=== PATIENT | female | born 1995 | race Caucasian/White ===

== ENCOUNTER 2018-09-28 19:50 | Emergency (ER) | payer BC, MEDICAID, OTHER ==
[2018-09-28 20:00] VITALS: RESP 18
[2018-09-28] MEDS ORDERED: LIDOCAINE 1% INJ 10MG/ML (20 ML MDV) SQ ONE (21:00)
[2018-09-28] MEDS ORDERED: IBUPROFEN 600 MG TAB PO STA (21:00)
[2018-09-28] MEDS ORDERED: ACETAMINOPHEN TAB 500 MG TAB PO STA (21:00)
[2018-09-28] MEDS ORDERED: AMOXIC-POT CLAV 875MG STARTER 2 EACH TABLET PO STA (21:01)
--- NOTE | 2018-09-28 21:24 | XR ---
EXAMINATION TYPE: XR humerus RT DATE OF EXAM: 09/28/2018 COMPARISON: NONE HISTORY: Laceration TECHNIQUE: 2 views FINDINGS: I see no fracture nor dislocation. Shoulder joint and elbow joint appear intact. There is s oft tissue deformity at the anterior lower humerus consistent with laceration. IMPRESSION: No fracture seen.
--- NOTE | 2018-09-28 21:37 | ED ---
Animal Bite HPI - General Chief Complaint: Animal Bite Stated Complaint: Dog Bite Time Seen by Provider: 09/28/18 20:53 Source: patient Mode of arrival: ambulatory Limitations: no limitations - History of Present Illness Initial Comments: 23-year-old female patient presents to the emergency department today for evaluation of animal bite to the right upper arm. Patient states she is at a friend's house when their dog bit her. She states it was a Rottweiler. States it is up-to-date on its immunizations. Patient states that she has 2 lacerations to the right upper arm. States that she is having some pressure to the area but denies any significant pain. Denies a difficulty with range of motion of the joints. Patient states her tetanus vaccine is up-to-date within the last 5 years. She denies taking anything for pain. Denies any other injuries. Patient denies any headache, neck pain, back pain, chest pain, shortness of breath, dizziness, weakness, abdominal pain, nausea, vomiting, or difficulties with bowel movements or urination. - Related Data Previous Rx's Medication Instructions Recorded Amoxic-Pot Clav 875-125Mg 1 tab PO Q12HR #14 tablet 09/28/18 [Augmentin 875-125] Allergies Allergy/AdvReac Type Severity Reaction Status Date / Time No Known Allergies Allergy Verified 09/28/18 20:00 Review of Systems ROS Statement: Those systems with pertinent positive or pertinent negative responses have been documented in the HPI. ROS Other: All systems not noted in ROS Statement are negative. Past Medical History Past Medical History: No Reported History History of Any Multi-Drug Resistant Organisms: None Reported Past Surgical History: No Surgical Hx Reported Past Psychological History: No Psychological Hx Reported Smoking Status: Never smoker Past Alcohol Use History: Occasional Past Drug Use History: None Reported General Exam Limitations: no limitations General appearance: alert, in no apparent distress, other (Physical well- developed, well-nourished adult female patient in no acute distress. Vital signs upon presentation are temperature 98.2F, pulse 108, respirations 18, blood pressure 133/72, pulse ox 100% on room air.) Eye exam: Present: normal appearance, PERRL, EOMI. Absent: scleral icterus, conjunctival injection, periorbital swelling ENT exam: Present: normal exam, normal oropharynx, mucous membranes moist Respiratory exam: Present: normal lung sounds bilaterally. Absent: respiratory distress, wheezes, rales, rhonchi, stridor Cardiovascular Exam: Present: regular rate, normal rhythm, normal heart sounds. Absent: systolic murmur, diastolic murmur, rubs, gallop, clicks Extremities exam: Present: full ROM, normal capillary refill, other (Right upper arm swelling, ecchymosis. Superficial abrasions noted. 2 lacerations with exposed fat material, both 3cm. skin is otherwise pink, warm, dry. Cap refills less than 3 seconds. Radial pulses 2+ and equal bilaterally.). Absent: normal inspection, tenderness, pedal edema, joint swelling, calf tenderness Neurological exam: Present: alert, oriented X3, CN II-XII intact Psychiatric exam: Present: normal affect, normal mood Skin exam: Present: warm, dry, intact, normal color. Absent: rash Course Vital Signs 09/28/18 19:56 Temperature 98.2 F Pulse Rate 108 H Respiratory 18 Rate Blood Pressure 133/72 O2 Sat by Pulse 100 Oximetry Procedures - Laceration Laceration #1 Consent Obtained: verbal consent Indication: laceration Site: upper extremity ( Right lateral upper arm) Size (cm): 3 Description: linear Depth: simple, single layer Anesthetic Used: lidocaine 1% Anesthesia Technique: local infiltration Amount (mls): 5 Pre-repair: irrigated extensively Type of Sutures: nylon Size of Sutures: 4-0 Number of Sutures: 2 Technique: simple, interrupted Patient Tolerated Procedure: well, no complications Laceration #2 Consent Obtained: verbal consent Indication: laceration Site: upper extremity (Left medial upper arm) Size (cm): 3 Description: irregular Depth: simple, single layer Anesthetic Used: lidocaine 1% Anesthesia Technique: local infiltration Amount (mls): 5 Pre-repair: irrigated extensively Type of Sutures: nylon Size of Sutures: 4-0 Number of Sutures: 2 Technique: simple, interrupted (one corner stitch) Patient Tolerated Procedure: well, no complications Medical Decision Making - Medical Decision Making 23-year-old female patient presented to the emergency department today for evaluation of dog bite to the right upper arm. Physical examination did reveal 2 lacerations with surrounding edema, ecchymosis, and abrasions. X-ray was obtained of the right upper arm and showed no evidence for foreign body or bony abnormality. Given the gaping nature of both lacerations I did have to insert 2 sutures to each one. I did irrigate each wound extensively. Patient will be started on Augmentin for prophylaxis. She is given a starter pack of Tylenol with codeine per she is instructed take Tylenol Motrin for any further discomfort. She is instructed to return in 7 days for suture removal. She is instructed to follow-up with her primary care physician for recheck in 1-2 days. Return parameters discussed in detail. She verbalizes understanding and agrees with this plan. - Radiology Data Radiology results: report reviewed, image reviewed 2 views of the right humerus are obtained. Report was reviewed in its entirety. Impression by Dr. Evangelista shows no fracture seen Disposition Clinical Impression: Dog bite of right upper arm Disposition: HOME SELF-CARE Condition: Good Instructions (If sedation given, give patient instructions): Animal Bite (ED), Care For Your Stitches (ED) Additional Instructions: Keep wound clean and dry. Cleanse twice daily with warm water and antibacterial soap. Keep covered. Follow-up with your primary care physician for recheck in 1-2 days. Complete antibiotic prescription in full. Return to the emergency department for any new, worsening, or concerning symptoms. Prescriptions: Amoxic-Pot Clav 875-125Mg [Augmentin 875-125] 1 tab PO Q12HR #14 tablet Is patient prescribed a controlled substance at d/c from ED?: No Referrals: Sandy Ladd MD [Primary Care Provider] - 1-2 days Time of Disposition: 22:32
[2018-09-28] MEDS ORDERED: ACET/COD 300 MG/30 MG STARTER PACK 6 TAB BTL PO STA (22:32)
[2018-09-28 22:48] VITALS: BP 126/68; PULSE 74; TEMP 98.1
== END 2018-09-28 22:45 | disposition home or self-care (01) ==
LOC: EC 19:50
DX: S41.111A Laceration without foreign body of right upper arm, initial encounter (principal); S41.112A Laceration without foreign body of left upper arm, initial encounter; W54.0XXA Bitten by dog, initial encounter
CPT/HCPCS: 73060; 99283; 12002; J2001

== ENCOUNTER 2021-01-30 07:27 | Outpatient (CLI) | payer MEDICAID ==
[2021-01-30 07:59] VITALS: BP 133/84; PULSE 91; RESP 16; TEMP 97.9
--- NOTE | 2021-03-14 16:25 | P.MSEPDOC ---
Presenting Problems - Arrival Data Date of Arrival on Unit: 01/30/21 Time of Arrival on Unit: 20:20 Mode of Transport: Ambulatory - Complaint OB-Reason for Admission/Chief Complaint: Vaginal Bleeding Medical History - Information : 1 Para: 0 Term: 0 : 0 Abortions: Spontaneous or Elective: 0 Number of Living Children: 0 - Gestational Age Gestational Age by DARÍO (wks/days): 37 Weeks and 0 Days Review of Systems - Review of Systems Constitutional: No problems Breast: No problems ENT: No problems Cardiovascular: No problems Respiratory: No problems Gastrointestinal: No problems Genitourinary: No problems Musculoskeletal: No problems Neurological: No problems Skin: No problems Vital Signs - Temperature Temperature: 97.9 F Temperature Source: Temporal Artery Scan - Pulse Brachial Pulse Rate: 91 Pulse Assessment Method: Automatic Cuff - Respirations Respiratory Rate: 16 Oxygen Delivery Method: Room Air O2 Sat by Pulse Oximetry: 97 - Blood Pressure Right Arm Sitting Blood Pressure: 133/84 Blood Pressure Mean: 100 Blood Pressure Source: Automatic Cuff Medical Screen Scoring - Cervical Exam Dilation (cm): 2 Effacement (%): 60 Station: -1 - Assessment - Baby A Baseline FHR: 135 Heart Rate - NICHD Category: Category I (Normal) NST: Reactive Physician Notification - Physician Notified Physician Notified Date: 01/30/21 Physician Notified Time: 08:51 Physician: Margaret Courtney Order Received: Yes - Notification Comment Comment: reported cervical exams, no change after 1 hr. dc pt home and she will f/u with Dr Cedeno in the am for her scheduled appt. Maternal Triage Index - Maternal Triage Index Presenting for scheduled procedure w/no complaint: No - Stat/Priority 1 Stat Priority 1: No - Urgent/Priority 2 Urgent Priority 2: No - Prompt/Priority 3 Prompt Priority 3: No - Non-Urgent/Priority 4 Non-Urgent Priority 4: Yes Criteria Met for Priority 4: recheck cervix in 1 hr Disposition - Disposition OB Disposition: Physician follow up in office, Discharge to home, Written follow up instructions reviewed Discharge Date: 01/30/21 Discharge Time: 09:04 I agree with the RN Medical Screening Exam: Yes Physician's MSE Comment: Patient not seen or examined by myself Case reviewed; plan agreed upon as documented in EMR&OBIX.: Yes Diagnosis: FALSE LABOR AT OR AFTER 37 COMPLETED WEEKS OF GESTATION
== END 2021-01-30 09:04 | disposition home or self-care (01) ==
LOC: FBPOP 07:27
PROVIDERS: ATTEND Obstetrics & Gynecology Obstetrics
DX: O47.1 False labor at or after 37 completed weeks of gestation (principal); Z3A.37 37 weeks gestation of pregnancy
CPT/HCPCS: 59025; 99213

== ENCOUNTER 2021-01-30 19:50 | Inpatient (IN) | payer MEDICAID ==
[2021-01-30] MEDS ORDERED: OXYTOCIN 10 UNIT/ML 1 ML VIAL IM PRN (20:26)
[2021-01-30] MEDS ORDERED: CARBOPROST TROMETHAMINE 250 MCG/ML 1 ML AMP IM PRN (20:26)
[2021-01-30] MEDS ORDERED: TERBUTALINE 1 MG/ML VIAL SQ PRN (20:26)
[2021-01-30] MEDS ORDERED: LIDOCAINE 0.5% (PF) 5 MG/ML (50 ML SDV) SQ PRN (20:26)
[2021-01-30] MEDS ORDERED: METHYLERGONOVINE 0.2 MG/ML 1 ML AMP IM PRN (20:26)
[2021-01-30 21:23] VITALS: RESP 16
[2021-01-30] MEDS: OXYTOCIN 30 UNITS/500 ML NS 30 UNIT in SALINE 1 500ML.BAG IV SCH (21:26)
[2021-01-30] MEDS: LACTATED RINGERS 1,000 ML IV SCH ×2 (21:27→22:16)
[2021-01-30] MEDS ORDERED: fentaNYL (PF) 50 MCG/ML 5 ML AMP ONE (22:19)
[2021-01-30] MEDS ORDERED: SODIUM CHLORIDE 0.9% 100 ML BAG ONE (22:19)
[2021-01-30] MEDS ORDERED: ROPIVACAINE 5MG/ML 20ML VIAL ONE (22:19)
[2021-01-30 22:35] LABS: Basophils % (A) 0 %; Eosinophils # (A) 0.2 k/uL (0-0.7); Eosinophils % (A) 1 %; HCT 37.8 % (34.0-46.0); HGB 13.4 gm/dL (11.4-16.0); Lymphocytes # (A) 2.4 k/uL (1.0-4.8); Lymphocytes % (A) 14 %; MCH 34.2 pg (25.0-35.0); MCHC 35.3 g/dL (31.0-37.0); MCV 96.7 fL (80.0-100.0); Mean Platelet Volume 11.9; Monocytes # (A) 1.1 k/uL (0-1.0); Monocytes % (A) 6 %; Neutrophils # (A) 13.5 k/uL (1.3-7.7); Neutrophils % (A) 78 %; Platelet Count 180 k/uL (150-450); RBC 3.91 m/uL (3.80-5.40); RDW 12.4 % (11.5-15.5); WBC 17.3 k/uL (3.8-10.6)
--- NOTE | 2021-01-31 01:05 | P.HPOB ---
History of Present Illness H&P Date: 01/31/21 Chief Complaint: IUP at 37 and 0, active labor This is a 18-year-old 1 para 0 at 38-0/7 weeks with an estimated due date of 02/21. Patient presents with regular painful contractions, patient believes her water broke around 1700. Patient noted good movement. P atient been receiving routine care which had been essentially uncomplicated. Patient has a known blood type of B+, rubella status immune, hep [place] surface antigen negative, HIV negative, RPR nonreactive, group beta strep cultures negative. Review of Systems Constitutional: Denies chills, Denies fatigue, Denies fever Ears, nose, mouth and throat: Denies headache Cardiovascular: Reports leg edema Respiratory: Denies dyspnea Gastrointestinal: Denies constipation, Denies diarrhea Genitourinary: Reports Past Medical History Past Medical History: No Reported History History of Any Multi-Drug Resistant Organisms: None Reported Past Surgical History: No Surgical Hx Reported Past Anesthesia/Blood Transfusion Reactions: No Reported Reaction Past Psychological History: No Psychological Hx Reported Smoking Status: Never smoker Past Alcohol Use History: Occasional Past Drug Use History: None Reported Medications and Allergies Home Medications Medication Instructions Recorded Confirmed Type Aspirin [[place] Aspirin EC] 81 mg PO DAILY 01/30/21 01/30/21 History Pnv No.95/Ferrous Fum/Folic AC 1 each PO DAILY 01/30/21 01/30/21 History [ Multivitamin Tablet] Allergies Allergy/AdvReac Type Severity Reaction Status Date / Time No Known Allergies Allergy Verified 01/30/21 20:25 Exam Osteopathic Statement: *. No significant issues noted on an osteopathic structural exam other than those noted in the History and Physical/Consult. 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 Results Result Diagrams: 01/30/21 20:48 Abnormal Lab Results - Last 24 Hours (Table) 01/30/21 Range/Units 20:48 WBC 17.3 H (3.8-10.6) k/uL Neutrophils # 13.5 H (1.3-7.7) k/uL Monocytes # 1.1 H (0-1.0) k/uL Assessment and Plan (1) 37 weeks gestation of Current Visit: Yes Status: Acute Code(s): Z3A.37 - 37 WEEKS GESTATION OF SNOMED Code(s): 38872449 (2) SROM (spontaneous rupture of membranes) Current Visit: Yes Status: Acute Code(s): LRW4807 - SNOMED Code(s): 544661770 (3) Active labor Current Visit: Yes Status: Acute Code(s): PQN3868 - SNOMED Code(s): 274194421 Plan: 26-year-old 1 para 0 at 37-0/7 weeks that presents to labor and delivery in active labor. Noted spontaneous rupture of membranes. Patient is admitted to labor and delivery with expectant management. Anticipate spontaneous vaginal delivery.
--- NOTE | 2021-01-31 01:09 | P.PROBDLV ---
Vaginal Delivery Note - . Vaginal Delivery Note: 26-year-old 1 para 0 at 37-2/7 weeks presented to labor and delivery with complaints of regular painful contractions, noted spontaneous rupture of membranes around 1700. Known negative group beta strep cultures. Patient is admitted to labor and delivery for expectant management. Patient became uncomfortable and did request epidural placement. Epidural was placed without difficulty by the anesthesia . Patient progressed to complete began pushing and had a normal spontaneous vaginal delivery of a viable male infant at 041, weight of 5 pounds 5.9 ounces, Apgars of 8 and 9 at one and 5 minutes respectively. A loose nuchal cord was noted at delivery and delivered through. After two-minute delay the umbilical cord doubly clamped and cut, and the placenta was delivered spontaneously intact with three-vessel cord being noted. On section the patient's vaginal vault a secondary midline laceration was appreciated. This was instilled with lidocaine and repaired in usual fashion with 3-0 Rapide. Hemostasis was appreciated after repair. The uterus was noted to be boggy after delivery the bladder was then drained for approximately 150 mL of clear yellow urine. The uterus is noted to be firm. Soon afterwards the uterus was noted to be boggy once again and therefore Methergine was given 1. Uterus is noted to be firm and below the umbilicus at this time. Estimated blood loss 200 mL. Patient and tolerated delivery well and are resting comfortably. All counts noted be correct 2 at the end of the delivery.
[2021-01-31] MEDS: OXYTOCIN 30 UNITS/500 ML NS 30 UNIT in SALINE 1 500ML.BAG IV SCH (01:11)
[2021-01-31] MEDS ORDERED: diphenhydrAMINE 25 MG CAP PO PRN (01:43)
[2021-01-31] MEDS ORDERED: ZOLPIDEM 5 MG TAB PO PRN (01:43)
[2021-01-31] MEDS ORDERED: LANOLIN CREAM 5 GM TUBE TOPICAL PRN (01:43)
[2021-01-31] MEDS ORDERED: diphenhydrAMINE 50 MG/ML 1 ML VIAL IVP PRN ×2 (01:43)
[2021-01-31] MEDS ORDERED: ACETAMINOPHEN TAB 325 MG TAB PO PRN (01:43)
[2021-01-31] MEDS ORDERED: HYDROCORTISONE 2.5% RECTAL CREAM 30 GM TUBE RECTAL PRN (01:43)
[2021-01-31] MEDS ORDERED: diphenhydrAMINE 50 MG CAP PO PRN (01:43)
[2021-01-31] MEDS ORDERED: BENZOCAINE/MENTHOL SPRAY 1 GM/SPRAY AEROSOL TOPICAL PRN (01:43)
[2021-01-31] MEDS ORDERED: SIMETHICONE 80 MG CHEWABLE PO PRN (01:43)
[2021-01-31] MEDS: IBUPROFEN 600 MG TAB PO SCH ×4 (02:51→23:17)
[2021-01-31] MEDS: SENNOSIDES-DOCUSATE SODIUM 1 EACH TAB PO SCH ×2 (07:52→23:17)
[2021-02-01] MEDS: IBUPROFEN 600 MG TAB PO SCH ×2 (05:49→07:54)
[2021-02-01 07:13] LABS: Basophils % (A) 0 %; Eosinophils # (A) 0.2 k/uL (0-0.7); Eosinophils % (A) 1 %; HCT 32.6 % (34.0-46.0); HGB 11.3 gm/dL (11.4-16.0); Lymphocytes # (A) 1.8 k/uL (1.0-4.8); Lymphocytes % (A) 13 %; MCH 34.4 pg (25.0-35.0); MCHC 34.8 g/dL (31.0-37.0); MCV 98.9 fL (80.0-100.0); Mean Platelet Volume 10.2; Monocytes # (A) 0.7 k/uL (0-1.0); Monocytes % (A) 5 %; Neutrophils # (A) 10.7 k/uL (1.3-7.7); Neutrophils % (A) 80 %; Platelet Count 155 k/uL (150-450); RBC 3.29 m/uL (3.80-5.40); RDW 12.7 % (11.5-15.5); WBC 13.5 k/uL (3.8-10.6)
[2021-02-01] MEDS: SENNOSIDES-DOCUSATE SODIUM 1 EACH TAB PO SCH (07:54)
[2021-02-01 08:33] VITALS: BP 135/71; PULSE 88; TEMP 98.1
--- NOTE | 2021-02-01 12:11 | P.DS ---
Providers Date of admission: 01/30/21 20:20 Expected date of discharge: 02/01/21 Attending physician: Jana Cedeno Primary care physician: Stated None - Discharge Diagnosis(es) (1) 37 weeks gestation of Current Visit: Yes Status: Acute (2) SROM (spontaneous rupture of membranes) Current Visit: Yes Status: Acute (3) Active labor Current Visit: Yes Status: Acute (4) Status post normal vaginal delivery Current Visit: Yes Status: Acute Hospital Course: This is a 18-year-old 1 para 0 that presented to labor and delivery at 38-2/7 weeks with complaints of regular painful contractions. Patient states she's been te with the day and became more uncomfortable. Patient noted spontaneous rupture of membranes around 1700. Patient had a negative group beta strep culture. Patient was admitted to labor and delivery eventually becoming uncomfortable and requesting epidural placement. Patient progressed to complete began pushing and had a normal spontaneous vaginal delivery of a viable male at 041, weight of 5 pounds 5.9 ounces, Apgars of 8 and 9 at one and 5 minutes respect daily. Patient did sustain a second degree midline laceration which was repaired in the usual fashion with 3-0 Rapide. Patient did receive Methergine 1 secondary to bleeding after delivery. Her surgery firm afterwards. Patient's course has been uneventful. On this day 1 she is ambulatory and voiding without difficulty. She is tolerating a regular diet without nausea or vomiting. She is breast-feeding w ithout difficulty. She states her pain is well-controlled. She would like discharge home today. Patient Condition at Discharge: Good Plan - Discharge Summary Discharge Rx Participant: Yes New Discharge Prescriptions: No Action Pnv No.95/Ferrous Fum/Folic AC [ Multivitamin Tablet] 1 each PO DAILY Aspirin [[place] Aspirin EC] 81 mg PO DAILY Discharge Medication List Aspirin [[place] Aspirin EC] 81 mg PO DAILY 01/30/21 [History] Pnv No.95/Ferrous Fum/Folic AC [ Multivitamin Tablet] 1 each PO DAILY 01/30/21 [History] Follow up Appointment(s)/Referral(s): Jana Cedeno DO [Doctor of Osteopathic Medicine] - 4 Weeks Patient Instructions/Handouts: Vaginal Delivery (DC), Vaginal Delivery (GEN) Discharge Disposition: HOME SELF-CARE
== END 2021-02-01 15:40 | disposition home or self-care (01) | DRG 807 ==
LOC: FBPOP 19:50 → 4FBP 20:20
PROVIDERS: ADMIT Obstetrics & Gynecology; ATTEND Obstetrics & Gynecology Obstetrics
PROC: 10E0XZZ Delivery of Products of Conception, External Approach (ICD-10-PCS; principal; 2021-01-31)
PROC: 0KQM0ZZ Repair Perineum Muscle, Open Approach (ICD-10-PCS; 2021-01-31)
DX: O69.81X0 Labor and delivery complicated by cord around neck, without compression, not applicable or unspecified (principal); Z37.0 Single live birth; Z3A.38 38 weeks gestation of pregnancy; Z79.82 Long term (current) use of aspirin; O70.1 Second degree perineal laceration during delivery
CPT/HCPCS: 85025; 86850; 86870; 86880; 86900; 86901; 88307

== ENCOUNTER → 2022-06-03 | Outpatient (CLI) | payer MEDICAID ==
[2022-06-03 14:40] LABS: HCT 38.1 % (37.2-46.3); HGB 12.7 g/dL (12.0-15.0); MCH 32.2 pg (27.0-32.0); MCHC 33.3 g/dL (32.0-37.0); MCV 96.5 fL (80.0-97.0); Mean Platelet Volume 12.4 fL (9.5-12.2); NRBC Per 100 WBC 0 /100 WBCS (0.0-0.0); Platelet Count 209 X 10*3/uL (140-440); RBC 3.95 X 10*6/uL (4.10-5.20); WBC 10.11 X 10*3/uL (4.50-10.00)
== END | disposition home or self-care (01) ==
LOC: LABWHC1 08:59
PROVIDERS: ATTEND Obstetrics & Gynecology Obstetrics
DX: Z36.9 Encounter for antenatal screening, unspecified (principal)
CPT/HCPCS: 36415; 82950; 85027

== ENCOUNTER 2022-08-16 12:38 | Outpatient (CLI) | payer MEDICAID ==
[2022-08-16] MEDS ORDERED: LACTATED RINGERS 1,000 ML IV SCH (13:45)
[2022-08-16 14:00] LABS: Basophils % (A) 0 %; Eosinophils % (A) 0 %; HCT 38.3 % (34.0-46.0); HGB 12.8 gm/dL (11.4-16.0); Lymphocytes # (A) 0.6 k/uL (1.0-4.8); Lymphocytes % (A) 6 %; MCH 30.5 pg (25.0-35.0); MCHC 33.4 g/dL (31.0-37.0); MCV 91.3 fL (80.0-100.0); Mean Platelet Volume 10.4; Monocytes # (A) 0.6 k/uL (0-1.0); Monocytes % (A) 6 %; Neutrophils # (A) 8.9 k/uL (1.3-7.7); Neutrophils % (A) 86 %; Platelet Count 184 k/uL (150-450); RBC 4.19 m/uL (3.80-5.40); RDW 13.4 % (11.5-15.5); WBC 10.3 k/uL (3.8-10.6)
[2022-08-16 14:09] LABS: Amorphous Sediment,Urine Rare /hpf; Appearance,Urine Clear (Clear); Bacteria,Urine Many /hpf; Bilirubin,Urine Negative (Negative); Blood,Urine Negative (Negative); Color,Urine Light Yellow; Glucose,Urine (UA) Negative (Negative); Ketones,Urine Negative (Negative); Leukocyte Esterase,Urine Large (Negative); Mucus,Urine Rare /hpf; Nitrite,Urine Negative (Negative); PH, Urine 6.5 (5.0-8.0); Protein,Urine Negative (Negative); RBC,Urine 2 /hpf (0-5); Specific Gravity,Urine 1.008 (1.001-1.035); Squamous Epithelial Cell,Urine 2 /hpf (0-4); Urobilinogen,Urine <2.0 mg/dL (<2.0); WBC,Urine 113 /hpf (0-5)
[2022-08-16 17:05] VITALS: BP 138/72; PULSE 127; RESP 18; TEMP 99.1
--- NOTE | 2022-09-24 17:58 | P.MSEPDOC ---
Presenting Problems - Arrival Data Date of Arrival on Unit: 08/16/22 Time of Arrival on Unit: 12:38 Mode of Transport: Ambulatory - Complaint OB-Reason for Admission/Chief Complaint: Pain Comment: pt presents to triage for dizziness, achey, and lower back pain, pt's positive for covid last night Medical History - Information : 2 Para: 1 Term: 1 : 0 Abortions: Spontaneous or Elective: 0 Number of Living Children: 1 - Gestational Age Gestational Age by DARÍO (wks/days): 37 Weeks and 0 Days Review of Systems - Review of Systems Constitutional: No problems Breast: No problems ENT: No problems Cardiovascular: No problems Respiratory: No problems Gastrointestinal: No problems Genitourinary: No problems Musculoskeletal: No problems Neurological: No problems Skin: No problems Vital Signs - Temperature Temperature: 99.1 F Temperature Source: Temporal Artery Scan - Pulse Right Brachial Pulse Rate: 127 Pulse Assessment Method: Automatic Cuff - Respirations Respiratory Rate: 18 Oxygen Delivery Method: Room Air O2 Sat by Pulse Oximetry: 98 - Blood Pressure Right Arm Blood Pressure: 138/72 Blood Pressure Mean: 94 Blood Pressure Source: Automatic Cuff Medical Screen Scoring - Cervical Exam Dilation (cm): 0 - Uterine Contractions Resting: Soft to palpation - Assessment - Baby A Baseline FHR: 150 Heart Rate - NICHD Category: Category I (Normal) NST: Reactive Physician Notification - Physician Notified Physician Notified Date: 08/16/22 Physician Notified Time: 13:15 Physician: Jana Cedeno New Order Received: Yes - Notification Comment Comment: pt given 1 liter of LR, cbc, ua, and covid/flu/rsv test sent, pt positive for covid, dc'd home with instructions to keep hydrated and take tylenol prn for fever and pain Maternal Triage Index - Maternal Triage Index Presenting for scheduled procedure w/no complaint: No - Stat/Priority 1 Stat Priority 1: No - Urgent/Priority 2 Urgent Priority 2: Yes Provider Notified: pt present Provider Notified Time: 13:15 Criteria Met for Priority 2: pt presents to triage for dizziness, achey, and lower back pain, pt's positive for covid last night Disposition - Disposition OB Disposition: Triage, Discharge to home, Written follow up instructions reviewed Discharge Date: 08/16/22 Discharge Time: 14:43 I agree with the RN Medical Screening Exam: Yes Case reviewed; plan agreed upon as documented in EMR&OBIX.: Yes Diagnosis: DEHYDRATION
== END 2022-08-16 14:43 | disposition home or self-care (01) ==
LOC: FBPOP 12:38
PROVIDERS: ATTEND Obstetrics & Gynecology Obstetrics
DX: O99.283 Endocrine, nutritional and metabolic diseases complicating pregnancy, third trimester (principal); E86.0 Dehydration; Z3A.37 37 weeks gestation of pregnancy; Z79.82 Long term (current) use of aspirin
CPT/HCPCS: 36415; 59025; 81001; 85025; 87636; 96360; 99214

== ENCOUNTER 2022-09-05 05:47 | Inpatient (IN) | payer MEDICAID ==
[2022-09-05] MEDS ORDERED: CARBOPROST TROMETHAMINE 250 MCG/ML 1 ML AMP IM PRN (06:03)
[2022-09-05] MEDS ORDERED: TERBUTALINE 1 MG/ML VIAL SQ PRN (06:03)
[2022-09-05] MEDS ORDERED: METHYLERGONOVINE 0.2 MG/ML 1 ML AMP IM PRN (06:03)
[2022-09-05] MEDS ORDERED: miSOPROStoL 200 MCG TAB PO PRN (06:03)
[2022-09-05] MEDS ORDERED: LIDOCAINE 0.5% (PF) 5 MG/ML (50 ML SDV) SQ PRN (06:03)
[2022-09-05] MEDS ORDERED: TRANEXAMIC ACID IN NACL,ISO-OS 1,000 MG in EMPTY BAG 1 BAG IV PRN (06:03)
[2022-09-05] MEDS ORDERED: OXYTOCIN 10 UNIT/ML 1 ML VIAL IM PRN (06:03)
[2022-09-05 06:25] LABS: Basophils % (A) 0 %; Eosinophils # (A) 0.2 k/uL (0-0.7); Eosinophils % (A) 1 %; HCT 36.2 % (34.0-46.0); HGB 12.4 gm/dL (11.4-16.0); Lymphocytes # (A) 2.4 k/uL (1.0-4.8); Lymphocytes % (A) 18 %; MCH 30.5 pg (25.0-35.0); MCHC 34.1 g/dL (31.0-37.0); MCV 89.4 fL (80.0-100.0); Mean Platelet Volume 11.5; Monocytes # (A) 0.6 k/uL (0-1.0); Monocytes % (A) 5 %; Neutrophils # (A) 9.4 k/uL (1.3-7.7); Neutrophils % (A) 74 %; Platelet Count 174 k/uL (150-450); RBC 4.05 m/uL (3.80-5.40); RDW 14.4 % (11.5-15.5); WBC 12.8 k/uL (3.8-10.6)
[2022-09-05] MEDS: LACTATED RINGERS 1,000 ML IV SCH ×2 (07:04→19:16)
[2022-09-05] MEDS: OXYTOCIN 30 UNITS/500 ML NS 30 UNIT in SALINE 1 500ML.BAG IV SCH ×2 (07:05→17:16)
[2022-09-05] MEDS ORDERED: LANOLIN CREAM 5 GM TUBE TOPICAL PRN (17:11)
[2022-09-05] MEDS ORDERED: ACETAMINOPHEN TAB 325 MG TAB PO PRN (17:11)
[2022-09-05] MEDS ORDERED: HYDROCORTISONE 2.5% RECTAL CREAM 30 GM TUBE RECTAL PRN (17:11)
[2022-09-05] MEDS ORDERED: BENZOCAINE/MENTHOL SPRAY 1 GM/SPRAY AEROSOL TOPICAL PRN (17:11)
[2022-09-05] MEDS ORDERED: ZOLPIDEM 5 MG TAB PO PRN (17:11)
[2022-09-05] MEDS ORDERED: diphenhydrAMINE 50 MG/ML 1 ML VIAL IVP PRN ×2 (17:11)
[2022-09-05] MEDS ORDERED: diphenhydrAMINE 25 MG CAP PO PRN (17:11)
[2022-09-05] MEDS ORDERED: diphenhydrAMINE 50 MG CAP PO PRN (17:11)
[2022-09-05] MEDS ORDERED: SIMETHICONE 80 MG CHEWABLE PO PRN (17:11)
[2022-09-05] MEDS ORDERED: OXYTOCIN 30 UNITS/500 ML NS 30 UNIT in SALINE 1 500ML.BAG IV SCH (17:15)
--- NOTE | 2022-09-05 17:15 | P.PROBDLV ---
Vaginal Delivery Note - . Vaginal Delivery Note: Findings: Viable female delivered at 1652, weight of 7 lbs. 15 oz., Apgars of 8 and 9 at one and 5 minutes respectively. This is a 27-year-old at 39-6/7 weeks that presents to labor and delivery for induction of labor. Patient did have a COVID-19 infection on 08/15. Patient has been receiving routine care which has been essentially uncomplicated. Ultrasound completed in the office this week suspicion for large for gestational age. Patient was admitted and Pitocin induction of labor was begun. Patient underwent amniotomy and thin meconium-stained fluid was appreciated. Patient progressed through labor eventually becoming uncomfortable and requesting epidural placement. Epidural was placed without difficulty by the anesthesia . Patient made good progression toward complete and began to feel the urge to push. Patient was placed in the modified lithotomy position with excellent maternal effort brought the down to presentation. The anterior shoulder was delivered with a compound hand followed by the posterior shoulder the was completely delivered at 1652. Spontaneous cry was noted at . The umbilical cord is doubly clamped and cut. The placenta was delivered spontaneous intact with three-vessel cord being noted. On inspection the patient's vaginal vault a secondary laceration was appreciated and repaired in usual fashion with 3-0 Rapide. Uterus was noted be slightly boggy and a small gush of lochia was appreciated. With fundal massage the uterus did firm. Estimated blood loss 150 mL. Patient and tolerated delivery well and are resting comfortably. Of note pizzas at delivery given meconium-stained fluid.
--- NOTE | 2022-09-05 17:15 | P.HPOB ---
History of Present Illness H&P Date: 09/05/22 Chief Complaint: E at 39-6/7 weeks, history of COVID-19 This is a 27-year-old at 39-6/7 weeks that presents for induction of labor. Patient has been receiving routine care which was complicated by a COVID-19 infection. Patient has a prior history of a spontaneous vaginal delivery at 37 weeks with a 5 lbs. 5 oz. . Patient has been feeling an occasional contraction denies vaginal bleeding or loss of fluid. Ultrasound was completed in the office this week revealing an estimated weight of 9 lbs. 2 oz., normal amniotic fluid index, vertex presentation On bloodwork this patient has a blood type of A+, rubella status immune, B surface antigen negative, HIV negative, RPR is nonreactive, group beta strep cultures negative. Past Medical History Past Medical History: No Reported History History of Any Multi-Drug Resistant Organisms: None Reported Past Surgical History: No Surgical Hx Reported Past Anesthesia/Blood Transfusion Reactions: No Reported Reaction Past Psychological History: No Psychological Hx Reported Smoking Status: Never smoker Past Alcohol Use History: Occasional Past Drug Use History: None Reported Medications and Allergies Home Medications Medication Instructions Recorded Confirmed Type Aspirin [[place] Aspirin EC] 81 mg PO DAILY 01/30/21 09/05/22 History Pnv No.95/Ferrous Fum/Folic AC 1 each PO DAILY 01/30/21 09/05/22 History [ Multivitamin Tablet] diphenhydrAMINE HCL [Benadryl] 25 mg PO HS PRN 08/16/22 09/05/22 History Allergies Allergy/AdvReac Type Severity Reaction Status Date / Time No Known Allergies Allergy Verified 08/16/22 14:05 Exam Osteopathic Statement: *. No significant issues noted on an osteopathic structural exam other than those noted in the History and Physical/Consult. Vital Signs Temp Pulse Resp BP Pulse Ox 09/05/22 06:01 97.1 F L 96 16 130/79 97 Intake and Output 09/04/22 09/05/22 09/05/22 22:59 06:59 14:59 Other: Weight 104.326 kg Targeted physical exam is performed on this date in general this is a well- nourished well-developed female in no acute distress, breathing is nonlabored, heart has a regular rate and rhythm, abdomen is gravid, on cervical exam she is 3/70/-2 station amniotomy is performed and thin meconium-stained fluid is appreciated. heart tones are noted to be category 1 and she is te irregularly. Results Result Diagrams: 09/05/22 06:10 Abnormal Lab Results - Last 24 Hours (Table) 09/05/22 Range/Units 06:10 WBC 12.8 H (3.8-10.6) k/uL Neutrophils # 9.4 H (1.3-7.7) k/uL Assessment and Plan (1) Term Current Visit: Yes Status: Acute Code(s): Z34.90 - ENCNTR FOR SUPRVSN OF NORMAL , UNSP, UNSP TRIMESTER SNOMED Code(s): 48325530 (2) COVID-19 affecting in third trimester Current Visit: Yes Status: Acute Code(s): O98.513 - OTHER VIRAL DISEASES COMPLICATING , THIRD TRIMESTER; U07.1 - COVID-19 SNOMED Code(s): 497131819 Plan: 27-year-old at 39-6/7 weeks that presents to labor and delivery for induction of labor. Patient is admitted and Pitocin induction of labor is begun per hospital protocol. Options for analgesia including Stadol, nitrous, epidur al are discussed. Patient will consider. Continue current care
[2022-09-05] MEDS: SENNOSIDES-DOCUSATE SODIUM 1 EACH TAB PO SCH (20:04)
[2022-09-05] MEDS: IBUPROFEN 600 MG TAB PO SCH (20:26)
[2022-09-06] MEDS: IBUPROFEN 600 MG TAB PO SCH ×3 (05:18→14:03)
[2022-09-06] MEDS: LACTATED RINGERS 1,000 ML IV SCH (07:28)
--- NOTE | 2022-09-06 08:53 | P.DS ---
Providers Date of admission: 09/05/22 05:47 Expected date of discharge: 09/06/22 Attending physician: Jana Cedeno Primary care physician: Stated None - Discharge Diagnosis(es) (1) Term Current Visit: Yes Status: Acute (2) COVID-19 affecting in third trimester Current Visit: Yes Status: Acute (3) Obstetric vaginal laceration with second degree perineal laceration Current Visit: Yes Status: Acute (4) Status post normal vaginal delivery Current Visit: No Status: Acute Hospital Course: this is a 27-year-old G2 now P2 presented to labor and delivery yesterday on 09/05 for induction of labor. Patient had been receiving routine care which has been essentially uncomplicated. Patient has a history of a COVID-19 infection on 08/15. Patient was admitted and Pitocin induction of labor was begun per hospital protocol. Patient underwent amniotomy and thin meconium- stained fluid was appreciated. Patient did progress through labor becoming uncomfortable and requesting epidural placement. Epidural was placed without difficulty by the anesthesia department. Patient made good progress toward complete and began to feel the urge to push. Patient had a normal spontaneous vaginal delivery of a viable female at 1652, weight of 7 lbs. 15 oz., Apgars of 8 and 9 at one and 5 minutes respectively. Patient did sustain a second-degree midline laceration during delivery. This was repaired in the usual fashion with 3-0 Rapide. Patient's course has been uneventful and on this day #1 she is ambulating and voiding without difficulty. She is tolerating a regular diet without nausea or vomiting. She states her pain is well-controlled. She would like discharge home at 24 hours if possible. Patient Condition at Discharge: Good Plan - Discharge Summary New Discharge Prescriptions: No Action Pnv No.95/Ferrous Fum/Folic AC [ Multivitamin Tablet] 1 each PO DAILY Aspirin [[place] Aspirin EC] 81 mg PO DAILY diphenhydrAMINE HCL [Benadryl] 25 mg PO HS PRN PRN Reason: Allergy Symptoms Discharge Medication List Aspirin [[place] Aspirin EC] 81 mg PO DAILY 01/30/21 [History] Pnv No.95/Ferrous Fum/Folic AC [ Multivitamin Tablet] 1 each PO DAILY 01/30/21 [History] diphenhydrAMINE HCL [Benadryl] 25 mg PO HS PRN 03/24/23 [History] Follow up Appointment(s)/Referral(s): Jana Cedeno DO [Doctor of Osteopathic Medicine] - 1 Week Patient Instructions/Handouts: Vaginal Delivery (GEN), Vaginal Delivery (DC) Activity/Diet/Wound Care/Special Instructions: no tub baths or intercourse until 6 weeks . bleeding is reviewed. Patient is to call and schedule a routine check in 4 weeks. Should patient have any concerns prior to this appointment she is urged to call the office. Discharge Disposition: HOME SELF-CARE
[2022-09-06] MEDS: SENNOSIDES-DOCUSATE SODIUM 1 EACH TAB PO SCH (10:30)
[2022-09-06 15:44] VITALS: BP 108/70; PULSE 73; RESP 16; TEMP 97.8
== END 2022-09-06 17:35 | disposition home or self-care (01) | DRG 805 ==
LOC: 4FBP 05:47
PROVIDERS: ADMIT Obstetrics & Gynecology Obstetrics; ATTEND Obstetrics & Gynecology Obstetrics
PROC: 10E0XZZ Delivery of Products of Conception, External Approach (ICD-10-PCS; principal; 2022-09-05)
PROC: 0KQM0ZZ Repair Perineum Muscle, Open Approach (ICD-10-PCS; 2022-09-05)
PROC: 3E033VJ Introduction of Other Hormone into Peripheral Vein, Percutaneous Approach (ICD-10-PCS; 2022-09-05)
PROC: 10907ZC Drainage of Amniotic Fluid, Therapeutic from Products of Conception, Via Natural or Artificial Opening (ICD-10-PCS; 2022-09-05)
PROC: 4A0HXCZ Measurement of Products of Conception, Cardiac Rate, External Approach (ICD-10-PCS; 2022-09-05)
DX: O77.0 Labor and delivery complicated by meconium in amniotic fluid (principal); U07.1 COVID-19; Z37.0 Single live birth; O98.52 Other viral diseases complicating childbirth; O70.1 Second degree perineal laceration during delivery; Z3A.39 39 weeks gestation of pregnancy; Z79.82 Long term (current) use of aspirin
CPT/HCPCS: 85025; 86850; 86900; 86901